=== PATIENT | male | born 1995 | race Two or more races ===

== ENCOUNTER 2019-04-14 11:58 | Emergency (ER) | payer SELFPAY ==
--- NOTE | 2019-04-14 12:08 | ER Report ---
History and Physical Time Seen By MD: 12:05 Hx. of Stated Complaint: COUGH, SOB, WEAKNESS. HERE WORKING FROM [place] HPI/ROS CHIEF COMPLAINT: Cough and SOB HISTORY OF PRESENT ILLNESS: 23 year old male presents to ED with cough and SOB. He reports he traveled from [place] about 1 week ago and his symptoms started soon after. He reports a productive cough that is worse in the morning and at night. Reports intermittent SOB. Denies chest pain, heart palpitations. He reports he has to rub the center of his chest to help loosen the mucus stuck in his throat. He reports a mild generalized headache that is intermittent as well. Denies nausea, vomiting. REVIEW OF SYSTEMS: Constitutional: Reports he has felt feverish today Respiratory: Cough, dyspnea Cardiovascular: No chest pain, no palpitations. Gastrointestinal: No vomiting, no abdominal pain. Musculoskeletal: No back pain. Allergies: Coded Allergies: No Known Drug Allergies (Unverified , 04/14/19) Home Meds Active Scripts Lisinopril (LISINOPRIL) 10 Mg Tablet, 10 MG PO QDAY for 30 Days, #30 TAB Prov:SAMIR VÁZQUEZ 04/14/19 Prednisone (PREDNISONE) 20 Mg Tablet, 40 MG PO DAILY for 5 Days, #10 TAB Prov:SAMIR VÁZQUEZ [facility] 04/14/19 Azithromycin 250 Mg Tab (AZITHROMYCIN 250 MG TAB) 250 Mg Tablet, 1 TAB PO QDAY for 5 Days, #6 TAB Take 2 tabs today and then 1 tab a day until gone. Prov:SAMIR VÁZQUEZ 04/14/19 Past Medical/Surgical History No significant past medical or surgical hx. Reviewed Nurses Notes: Yes Constitutional Vital Sign - Last 24 Hours 04/14/19 04/14/19 04/14/19 04/14/19 12:00 12:02 12:03 12:03 Temp 98.5 Pulse ??? 110 Resp 26 B/P (MAP) 197/104 (135) 197/104 184/112 (136) Pulse Ox 81 O2 Delivery Room Air 04/14/19 04/14/19 04/14/19 04/14/19 12:03 12:12 12:17 12:30 Pulse 97 Resp 21 B/P (MAP) 199/112 (141) 163/118 (133) 171/123 (139) Pulse Ox 94 O2 Flow Rate 3.0 04/14/19 04/14/19 04/14/19 04/14/19 13:00 13:30 14:00 14:20 Pulse 101 145 Resp 15 16 B/P (MAP) 154/117 (129) 184/135 (151) 171/114 (133) Pulse Ox 94 92 95 04/14/19 04/14/19 04/14/19 04/14/19 14:30 14:55 15:00 15:13 Pulse 88 115 102 Resp 11 24 B/P (MAP) 184/96 (125) 170/101 (124) 166/120 (135) Pulse Ox 96 95 80 O2 Delivery Room Air Physical Exam General Appearance: The patient is alert, has no immediate need for airway protection and no current signs of toxicity. Eyes: Pupils equal and round no injection. Respiratory: Chest is non tender. On auscultation, good airflow noted in all pate, rhonchi noted in left upper and lower lobes. Cardiac: tachycardia with regular rhythm Gastrointestinal: Abdomen is soft and non tender, no masses, bowel sounds normal. Musculoskeletal: Neck: Neck is supple and non tender. Extremities have full range of motion and are non tender. Skin: No rashes or lesions. DIFFERENTIAL DIAGNOSIS: After history and physical exam differential diagnosis was considered for PE, NM, pneumonia, reactive airway disease, high altitude pulmonary edema. Medical Decision Making Data Points Result Diagram: 04/14/19 1218 04/14/19 1218 Laboratory Hematology Test 04/14/19 12:18 White Blood Count 10.8 k/uL (4.5-11.0) Red Blood Count 5.18 M/uL (4.00-5.60) Hemoglobin 14.1 g/dL (14.0-18.0) Hematocrit 42.5 % (42.0-52.0) Mean Corpuscular Volume 82.0 fL (80.0-96.0) Mean Corpuscular Hemoglobin 27.2 pg (26.0-33.0) Mean Corpuscular Hemoglobin Concent 33.1 g/dL (32.0-36.0) Red Cell Distribution Width 15.3 % (11.5-14.5) H Platelet Count 306 K/uL (150-450) Mean Platelet Volume 7.1 fL (7.2-11.1) L Neutrophils (%) (Auto) 73.9 % (39.4-72.5) H Lymphocytes (%) (Auto) 14.7 % (17.6-49.6) L Monocytes (%) (Auto) 8.3 % (4.1-12.4) Eosinophils (%) (Auto) 2.0 % (0.4-6.7) Basophils (%) (Auto) 1.1 % (0.3-1.4) Nucleated RBC Relative Count (auto) 0.0 /100WBC Neutrophils # (Auto) 8.0 K/uL (2.0-7.4) H Lymphocytes # (Auto) 1.6 K/uL (1.3-3.6) Monocytes # (Auto) 0.9 K/uL (0.3-1.0) Eosinophils # (Auto) 0.2 K/uL (0.0-0.5) Basophils # (Auto) 0.1 K/uL (0.0-0.1) Nucleated RBC Absolute Count (auto) 0.00 K/uL Peripheral Blood Smear No Y/N Chemistry Test 04/14/19 12:18 Sodium Level 139 mmol/L (137-145) Potassium Level 3.6 mmol/L (3.5-5.0) Chloride Level 103 mmol/L (98-107) Carbon Dioxide Level 26 mmol/L (22-30) Blood Urea Nitrogen 10 mg/dl (9-21) Creatinine 1.10 mg/dl (0.66-1.25) Glomerular Filtration Rate Calc > 60.0 Random Glucose 97 mg/dl (75-110) Calcium Level 8.9 mg/dl (8.4-10.2) Total Bilirubin 0.9 mg/dl (0.2-1.3) Aspartate Amino Transf (AST/SGOT) 33 U/L (0-35) Alanine Aminotransferase (ALT/SGPT) 39 U/L (0-56) Alkaline Phosphatase 72 U/L (0-126) Troponin I < 0.012 ng/ml Total Protein 7.1 g/dl (6.3-8.2) Albumin 3.8 g/dl (3.5-5.0) Coagulation Test 04/14/19 12:18 D-Dimer Quantitative (PE/DVT) 1.80 ug/ml (0-0.50) Urinalysis Test 04/14/19 12:58 Urine Color Yellow Urine Clarity Slightly-cloudy Urine pH 6.0 pH (4.8-9.5) Urine Specific [place] 1.018 Urine Protein 100 mg/dL (NEGATIVE) Urine Glucose (UA) Negative mg/dL (NEGATIVE) Urine Ketones Negative mg/dL (NEGATIVE) Urine Blood Negative (NEGATIVE) Urine Nitrite Negative (NEGATIVE) Urine Bilirubin Negative (NEGATIVE) Urine Urobilinogen 2.0 mg/dL (0.2-1.9) Urine Leukocyte Esterase Negative (NEGATIVE) Urine RBC 2 /HPF (0-2/HPF) Urine WBC 4 /HPF (0-5/HPF) Urine Squamous Epithelial Cells Many /LPF (</=FEW) Urine Bacteria Negative /HPF (NONE-FEW) Urine Mucus Few /HPF (NONE-FEW) EKG/Imaging EKG Interpretation 12 lead EKG: Rhythm: Sinus tachycardia with ventricular rate of 104 [place]: normal QRS: normal ST segments: normal Monitor Interpretation: Sinus Tachycardia Imaging PATIENT NAME: Joseluis Holt : 1995 MR: [id number] V: [id number] EXAM DATE: ORDERING PHYSICIAN: SAMIR VÁZQUEZ TECHNOLOGIST: Location: [facility] Patient: Joseluis Holt : 1995 Visit/Account:[id number] Date of Sevice: 04/14/2019 CHEST PA LAT HISTORY: Shortness of breath. Dyspnea on exertion. COMPARISON: None FINDINGS: Cardiomediastinal contours: The heart is markedly enlarged. Lungs and pleura: There is engorgement of the pulmonary vasculature. There are no pleural effusions but there is increase of the interstitial markings. The findings could represent mild pulmonary edema. Note that the lateral projection is not particularly helpful. Bones/soft tissues: There are no findings of a fracture. IMPRESSION: 1. Cardiomegaly with prominence the central pulmonary vessels and pericardial cuffing and interstitial prominence. The findings could represent mild pulmonary edema. Correlation clinical exam is recommended. Note that the lateral images are not optimal in terms of quality. CT angiogram chest with contrast Indication: Shortness of breath. Elevated d-dimer. Comparison: None available. Technique: Axial CT images are obtained through the chest after administration of 75 mL Isovue 370 IV contrast. Reformatted coronal and sagittal images were reviewed as well as coronal MIP images. One of the following dose optimization techniques was utilized in the performance of this exam: automated exposure control; adjustment of the mA and/or kV according to the patient's size; or use of an iterative reconstruction technique. Specific details can be referenced in the facility's radiology CT exam operational policy. FINDINGS: No evidence of filling defect within the pulmonary vasculature to suggest pulmonary embolus. Heart is mildly diffusely enlarged. No pericardial effusion. The aorta shows no aneurysm is poorly opacified to assess for dissection. The mediastinum and hilar regions show a few small lymph nodes without enlarged lymph node or abnormal density. The right upper lobe does show hazy interstitial opacities seen in the central aspect and a small foci in the anterior aspect. The lungs show no other opacities or consolidations. No pneumothorax, pleural effusion or discrete nodule. Small scar seen in the left lower lobe. Airways are clear. Bony structures show no acute fractures or aggressive bony lesions. Chest wall shows no enlarged axillary lymph nodes or masses. Limited views of the upper abdomen are unremarkable. IMPRESSION: 1. No evidence of pulmonary embolus. 2. Patchy interstitial opacities seen in the right upper lobe is likely due to early pneumonia. Suggest follow-up exam to assess for clearing or other etiologies. ED Course/Re-evaluation ED Course Upon arrival to the ED, patient admitted to an exam room, hx and physical obtained, differentials considered. Patient presents to ED with cough and SOB. H marry reports he traveled from [place] about 1 week ago and his symptoms started soon after. He reports a productive cough that is worse in the morning and at night. Reports intermittent SOB. Denies chest pain, heart palpitations. He reports a mild generalized headache that is intermittent as well. Denies nausea, vomiting. On exam, heart with tachycardia, regular rhythm. Lungs with good airflow throughout. Rhonchi heard in left upper and lower lobes. BP elevated at 180's/120's. On arrival, SpO2 was 81% on RA; O2 placed on patient and SpO2 was increased to 94%. IV started. D-dimer, CBC, CMP, troponin, UA, VBG, EKG, chest x-ray ordered. WBC 10.8 with slight left shift of 73.9 neutrophils. D-dimer sl ightly elevated at 1.8. VBG normal, troponin negtive, UA clear. EKG with sinus tachycardia with ventricular rate of 104. Pulmonary angiogram ordered for elevated d-dimer. Pulmonary angiogram with no evidence of pulmonary embolus, but patchy interstitial opacities seen in the right upper lobe is likely due to early pneumonia. Labetolol, 20mg given IV for high blood pressure. A trial of room air was attempted. Patient's saturation dropped to 79%. He was placed back on 3L NC and SpO2 came back up to 97%. Will send patient home with home oxygen; azithromycin and prednisone to treat the pneumonia; and lisinopril due to high blood pressure. Advised patient to follow closely with a primary care provider regarding his high blood pressure and cardiomegaly. Decision to Disposition Date: Apr 14, 2019 Decision to Disposition Time: 14:56 Depart Departure Latest Vital Signs Vital Signs Date Time Temp Pulse Resp B/P (MAP) Pulse Ox O2 Delivery O2 Flow Rate FiO2 04/14/19 15:13 102 24 80 Room Air 04/14/19 15:00 166/120 (135) 04/14/19 12:03 3.0 04/14/19 12:03 98.5 Impression: Primary Impression: Pneumonia Additional Impression: High blood pressure Condition: Improved Disposition: HOME OR SELF-CARE New Scripts Lisinopril (LISINOPRIL) 10 Mg Tablet 10 MG PO QDAY for 30 Days, #30 TAB Prov: SAMIR VÁZQUEZP 04/14/19 Prednisone (PREDNISONE) 20 Mg Tablet 40 MG PO DAILY for 5 Days, #10 TAB Prov: SAMIR VÁZQUEZ [facility] 04/14/19 Azithromycin 250 Mg Tab (AZITHROMYCIN 250 MG TAB) 250 Mg Tablet 1 TAB PO QDAY for 5 Days, #6 TAB Take 2 tabs today and then 1 tab a day until gone. Prov: SAMIR VÁZQUEZP 04/14/19 Departure Forms: ER Transition Record, Home Oxygen, Nebulizer RX, Home Oxygen Company Chosen by Patient: [employer] Durable Medical Equipment-Oxygen: Oxygen Concentrator, Portable Oxygen Gas Reason for Use/Diagnosis: pneumonia Medications Reconciliation, Patient Portal Information Patient Instructions: Bacterial Pneumonia (ED), Hypertension (ED) Additional Instructions: Get plenty of rest and drink plenty of fluids. Please take your antibiotic, Azithromycin as prescribed. Take two tabs today and 1 tab the next four days. Take Prednisone as prescribed. Take Lisinopril, 1 tab daily for high blood pressure. Wear your oxygen at all times. Follow-up with a general/primary provider as soon as you can. Return to the ER if you experience increased difficulty breathing, chest pain, vomiting, or any other concern. Problem Qualifiers Primary Impression: Pneumonia Pneumonia type: due to unspecified organism Laterality: right Lung location: upper lobe of lung Qualified Codes: J18.1 - Lobar pneumonia, unspecified organism Additional Impression: High blood pressure Hypertension type: unspecified Qualified Codes: I10 - Essential (primary) hypertension SAMIR VÁZQUEZ Apr 14, 2019 12:08
[2019-04-14 13:02] LABS: PLATELET COUNT, AUTOMATED 306 K/uL (150-450)
--- NOTE | 2019-04-14 13:29 | RADIOLOGY IMAGING REPORT ---
FACILITY: [facility] PATIENT NAME: Joseluis Holt : 1995 MR: [id number] V: [id number] EXAM DATE: ORDERING PHYSICIAN: SAMIR VÁZQUEZ TECHNOLOGIST: Location: [facility] [place] Patient: Joseluis Holt : 1995 Visit/Account:[id number] Date of Sevice: 04/14/2019 CHEST PA LAT HISTORY: Shortness of breath. Dyspnea on exertion. COMPARISON: None FINDINGS: Cardiomediastinal contours: The heart is markedly enlarged. Lungs and pleura: There is engorgement of the pulmonary vasculature. There are no pleural effusions b ut there is increase of the interstitial markings. The findings could represent mild pulmonary edema. Note that the lateral projection is not particularly helpful. Bones/soft tissues: There are no findings of a fracture. IMPRESSION: 1. Cardiomegaly with prominence the central pulmonary vessels and pericardial cuffing and interstitia l prominence. The findings could represent mild pulmonary edema. Correlation clinical exam is recomme nded. Note that the lateral images are not optimal in terms of quality. Report Dictated By: Scott Joshua MD at 04/14/2019 1:20 PM Report E-Signed By: Scott Joshua MD at 04/14/2019 1:22 PM WSN:[id number]
[2019-04-14] MEDS ORDERED: LABETALOL HCL 25 MG/5 ML SYRINGE IVP ONE (14:10)
[2019-04-14] MEDS ORDERED: LABETALOL HCL 100 MG/20ML VIAL IVP ONE (14:15)
[2019-04-14] MEDS ORDERED: NS(*) 0.9% 50 ML BAG 50 ML ONE (14:15)
[2019-04-14] MEDS ORDERED: IOPAMIDOL 76% 100 ML INFUS BTL 100 ML ONE (14:15)
--- NOTE | 2019-04-14 14:27 | RADIOLOGY IMAGING REPORT ---
FACILITY: [facility] PATIENT NAME: Joseluis Holt : 1995 MR: [id number] V: [id number] EXAM DATE: ORDERING PHYSICIAN: SAMIR VÁZQUEZ TECHNOLOGIST: Location: [facility] [place] Patient: Joseluis Holt : 1995 Visit/Account:[id number] Date of Sevice: 04/14/2019 CT angiogram chest with contrast Indication: Shortness of breath. Elevated d-dimer. Comparison: None available. Technique: Axial CT images are obtained through the chest after administration of 75 mL Isovue 370 IV contrast. Reformatted coronal and sagittal images were reviewed as well as coronal MIP images. One of the following dose optimization techniques was utilized in the performance of this exam: auto mated exposure control; adjustment of the mA and/or kV according to the patient's size; or use of an iterative reconstruction technique. Specific details can be referenced in the facility's radiology C T exam operational policy. FINDINGS: No evidence of filling defect within the pulmonary vasculature to suggest pulmonary embolus. Heart is mildly diffusely enlarged. No pericardial effusion. The aorta shows no aneurysm is poorly op acified to assess for dissection. The mediastinum and hilar regions show a few small lymph nodes with out enlarged lymph node or abnormal density. The right upper lobe does show hazy interstitial opacities seen in the central aspect and a small foc i in the anterior aspect. The lungs show no other opacities or consolidations. No pneumothorax, pleur al effusion or discrete nodule. Small scar seen in the left lower lobe. Airways are clear. Bony structures show no acute fractures or aggressive bony lesions. Chest wall shows no enlarged axil shiraz lymph nodes or masses. Limited views of the upper abdomen are unremarkable. IMPRESSION: 1. No evidence of pulmonary embolus. 2. Patchy interstitial opacities seen in the right upper lobe is likely due to early pneumonia. [address] st follow-up exam to assess for clearing or other etiologies. Report Dictated By: Yuri Lemus at 04/14/2019 2:12 PM Report E-Signed By: Yuri Lemus at 04/14/2019 2:20 PM WSN:[id number]
[2019-04-14] MEDS ORDERED: cefTRIAXone 2 GM VIAL IVP ONE (14:35)
[2019-04-14] MEDS ORDERED: LISI-362 PO (14:54)
[2019-04-14] MEDS ORDERED: PRED20TA6 PO (14:54)
[2019-04-14] MEDS ORDERED: AZIT-18 PO (14:54)
[2019-04-14 15:00] VITALS: BP 166/120
[2019-04-14] MEDS ORDERED: NS 0.9% ONE (15:04)
[2019-04-14] MEDS ORDERED: MINI ONE (15:04)
--- NOTE | 2019-04-14 15:32 | EKG ---
FAC[place] [facility] [place] PATIENT NAME: ERROL ANDREW : [id number] MR: [id number] V: [id number] EXAM DATE: ORDERING PHYSICIAN: SAMIR VÁZQUEZ TECHNOLOGIST: Test Reason : SOB Blood Pressure : / mmHG Vent. Rate : 104 BPM Atrial Rate : 104 BPM P-R Int : 146 ms QRS Dur : 100 ms QT Int : 376 ms P-R-T Axes : 065 074 073 degrees QTc Int : 494 ms Sinus tachycardia Otherwise normal ECG No previous ECGs available Confirmed by PEPPER LIM ([id number]) on 04/14/2019 4:12:55 PM Referred By: Confirmed By:PEPPER LIM
== END 2019-04-14 17:32 | disposition home or self-care (01) ==
LOC: ER 12:06
DX: J18.1 Lobar pneumonia, unspecified organism (principal); I10 Essential (primary) hypertension; R09.02 Hypoxemia
CPT/HCPCS: 71046; 71275; 81001; 82803; 84484; 85025; 85379; 93005; 96374; 96375; 99284; J0696; J7050; Q9967; 82040; 82247; 82310; 82374; 82435; 82565; 82947; 84075; 84132; 84155; 84295; 84450; 84460; 84520